=== PATIENT | male | born 2000 | race Caucasian/White ===

== ENCOUNTER 2020-07-29 23:00 | Emergency (ER) | payer BC ==
--- NOTE | 2020-07-29 23:10 | EDM.PDOC ---
ED HPI GENERAL MEDICAL PROBLEM - General Chief Complaint: Laceration Stated Complaint: laceration Time Seen by Provider: 07/29/20 23:10 Source of Information: Reports: Patient - History of Present Illness INITIAL COMMENTS - FREE TEXT/NARRATIVE: Ron Lake, 19-year-old male, presents with a nail laceration of the left third digit. Was putting a wire coupling squeezing power line together when slipped causing a crush type pinch injury to the left third digit. Entrapment briefly with a laceration of the nail occurring. Stated finger came out, but is unsure if he pulled it out or if the device released. Is uncertain of his tetanus status. He has no other injury or complaints. Onset: Today, Sudden Onset Date: 07/29/20 Duration: Minutes: Location: Reports: Upper Extremity, Left Quality: Reports: Dull, Pressure Severity: Moderate Improves with: Reports: None Worsens with: Reports: None Associated Symptoms: Reports: No Other Symptoms - Related Data Allergies Allergy/AdvReac Type Severity Reaction Status Date / Time No Known Allergies Allergy Verified 07/29/20 23:16 Past Medical History - Past Health History Medical/Surgical History: Denies Medical/Surgical History Social & Family History - Family History Family Medical History: Noncontributory ED ROS GENERAL - Review of Systems Review Of Systems: Comprehensive ROS is negative, except as noted in HPI. ED EXAM, SKIN/RASH Exam: See Below Text/Narrative:: Alert, oriented, and minimal if any distress. HEENT negative discharge or deformity PERRLA is free of any icterus no injection. Full range of motion with soft supple neck. No respiratory distress is noted Cardiac is regular radial pulses present correlates. Focused examination to the left upper extremity/hand shows no evidence of any injury to the wrist nor palm. There is a crush appearing injury to the lateral aspect of the distal tip. This caused a laceration 2 mm of the lateral nail. There is no active bleeding with minimal edema. Nail is minimally and appears to be intact to the nail matrix. Capillary refill is intact. There is no deficit noted to motion. Exam Limited By: No Limitations Course - Vital Signs Last Recorded V/S: Last Vital Signs Temp 36.8 C 07/29/20 23:15 Pulse 79 07/29/20 23:15 Resp 18 07/29/20 23:15 BP 129/65 07/29/20 23:15 Pulse Ox 99 10/16/20 23:15 - Orders/Labs/Meds Orders: Active Orders 24 hr Category Date Time Status Vaccines to be Administered [RC] PER UNIT ROUTINE Care 07/29/20 23:15 Ordered Fingers Third Digit Lt F2 [CR] Stat Exams 07/29/20 23:16 Ordered Meds: Medications Discontinued Medications Generic Name Dose Route Start Last Admin Trade Name Freq PRN Reason Stop Dose Admin Diphtheria/Tetanus/Acell Pertussis 0.5 ml 07/29/20 23:15 07/29/20 23:20 Adacel IM 07/29/20 23:16 0.5 ml .ONCE ONE Administration Departure - Departure Time of Disposition: 23:46 Disposition: Home, Self-Care 01 Condition: Good Clinical Impression: Laceration of middle finger with damage to nail, Crush injury to finger, Uchypkiewc-sjajcrzci-vneluhx (DPT) vaccination status unknown, Immunization due - Discharge Information *PRESCRIPTION DRUG MONITORING PROGRAM REVIEWED*: Not Applicable *COPY OF PRESCRIPTION DRUG MONITORING REPORT IN PATIENT SUMI: Not Applicable Instructions: Nail Bed Injury, Jssn-md-Mocs Forms: ED Department Discharge Additional Instructions: ED HPI GENERAL MEDICAL PROBLEM - General Chief Complaint: Laceration Stated Complaint: laceration Time Seen by Provider: 07/29/20 23:10 Source of Information: Reports: Patient - History of Present Illness INITIAL COMMENTS - FREE TEXT/NARRATIVE: Ron Lake, 19-year-old male, presents with a nail laceration of the left third digit. Was putting a wire coupling squeezing power line together when slipped causing a crush type pinch injury to the left third digit. Entrapment briefly with a laceration of the nail occurring. Stated finger came out, but is unsure if he pulled it out or if the device released. Is uncertain of his tetanus status. He has no other injury or complaints. Onset: Today, Sudden - Related Data Allergies Allergy/AdvReac Type Severity Reaction Status Date / Time No Known Allergies Allergy Verified 07/29/20 23:16 Past Medical History - Past Health History Medical/Surgical History: Denies Medical/Surgical History Social & Family History - Family History Family Medical History: Noncontributory ED ROS GENERAL - Review of Systems Review Of Systems: Comprehensive ROS is negative, except as noted in HPI. ED EXAM, SKIN/RASH Exam: See Below Text/Narrative:: Alert, oriented, and minimal if any distress. HEENT negative discharge or deformity PERRLA is free of any icterus no injection. Full range of motion with soft supple neck. No respiratory distress is noted Cardiac is regular radial pulses present correlates. Focused examination to the left upper extremity/hand shows no evidence of any injury to the wrist nor palm. There is a crush appearing injury to the lateral aspect of the distal tip. This caused a laceration 2 mm of the lateral nail. There is no active bleeding with minimal edema. Nail is minimally and appears to be intact to the nail matrix. Capillary refill is intact. There is no deficit noted to motion. Exam Limited By: No Limitations Course - Vital Signs Last Recorded V/S: Last Vital Signs Temp 36.8 C 07/29/20 23:15 Pulse 79 07/29/20 23:15 Resp 18 07/29/20 23:15 BP 129/65 07/29/20 23:15 Pulse Ox 99 07/29/20 23:15 - Orders/Labs/Meds Orders: Active Orders 24 hr Category Date Time Status Vaccines to be Administered [RC] PER UNIT ROUTINE Care 07/29/20 23:15 Ordered Fingers Third Digit Lt F2 [CR] Stat Exams 07/29/20 23:16 Ordered Meds: Medications Discontinued Medications Generic Name Dose Route Start Last Admin Trade Name Freq PRN Reason Stop Dose Admin Diphtheria/Tetanus/Acell Pertussis 0.5 ml 07/29/20 23:15 Adacel IM 07/29/20 23:16 .ONCE ONE Departure - Discharge Information Forms: ED Department Discharge Sepsis Event Note (ED) - Focused Exam Vital Signs: Vital Signs Temp Pulse Resp BP Pulse Ox 07/29/20 23:15 36.8 C 79 18 129/65 99 - Problem List & Annotations (1) Laceration of middle finger with damage to nail SNOMED Code(s): 319311148, 267602874 Code(s): S61.318A - LACERATION W/O FOREIGN BODY OF FINGER W DAMAGE TO NAIL, INIT Status: Acute Qualifiers: Encounter type: initial encounter Laterality: left (2) Crush injury to finger SNOMED Code(s): 28211415 Code(s): S67.10XA - CRUSHING INJURY OF UNSPECIFIED FINGER(S), INITIAL ENCOUNTER Status: Acute Priority: High Qualifiers: Encounter type: initial encounter Qualified Code(s): S67.10XA - Crushing injury of unspecified finger(s), initial encounter (3) Wqnypxxzvh-fwupfjhuk-tuxzuld (DPT) vaccination status unknown SNOMED Code(s): 688737689 Code(s): Z78.9 - OTHER SPECIFIED HEALTH STATUS Status: Acute Priority: High (4) Immunization due SNOMED Code(s): 025621478 Code(s): Z23 - ENCOUNTER FOR IMMUNIZATION Status: Acute Priority: High - Problem List Review Problem List Initiated/Reviewed/Updated: Yes - My Orders Last 24 Hours: My Active Orders 07/29/20 23:15 Vaccines to be Administered [RC] PER UNIT ROUTINE 07/29/20 23:16 Fingers Third Digit Lt F2 [CR] Stat - Assessment/Plan Last 24 Hours: My Active Orders 07/29/20 23:15 Vaccines to be Administered [RC] PER UNIT ROUTINE 07/29/20 23:16 Fingers Third Digit Lt F2 [CR] Stat Plan: Keep this clean and dry as possible. Protect with dressing and change if soiled. Splint may be used for protection while at work. Should be removed and cleansed after working hours and may be left open when at home in clean environment. You may clip the nail keeping it short, as it grows out to avoid pressure and irritation. Follow-up as needed. Keep this clean and dry as possible. Protect with dressing and change if soiled. Splint may be used for protection while at work. Should be removed and cleansed after working hours and may be left open when at home in clean environment. You may clip the nail keeping it short, as it grows out to avoid pressure and irritation. Follow-up as needed. Care Plan Goals: Keep this clean and dry as possible. Protect with dressing and change if soiled. Splint may be used for protection while at work. Should be removed and cleansed after working hours and may be left open when at home in clean environment. You may clip the nail keeping it short, as it grows out to avoid pressure and irritation. Follow-up as needed. Sepsis Event Note (ED) - Focused Exam Vital Signs: Vital Signs Temp Pulse Resp BP Pulse Ox 07/29/20 23:15 36.8 C 79 18 129/65 99 - Problem List & Annotations (1) Laceration of middle finger with damage to nail SNOMED Code(s): 479654458, 925814415 Code(s): S61.318A - LACERATION W/O FOREIGN BODY OF FINGER W DAMAGE TO NAIL, INIT Status: Acute Qualifiers: Encounter type: initial encounter Laterality: left (2) Crush injury to finger SNOMED Code(s): 66218334 Code(s): S67.10XA - CRUSHING INJURY OF UNSPECIFIED FINGER(S), INITIAL ENCOUNTER Status: Acute Priority: High Qualifiers: Encounter type: initial encounter Qualified Code(s): S67.10XA - Crushing injury of unspecified finger(s), initial encounter (3) Beyunwaamd-ocuoyyxdl-cupqjqb (DPT) vaccination status unknown SNOMED Code(s): 135668085 Code(s): Z78.9 - OTHER SPECIFIED HEALTH STATUS Status: Acute Priority: High (4) Immunization due SNOMED Code(s): 157492541 Code(s): Z23 - ENCOUNTER FOR IMMUNIZATION Status: Acute Priority: High - Problem List Review Problem List Initiated/Reviewed/Updated: Yes - My Orders Last 24 Hours: My Active Orders 07/29/20 23:15 Vaccines to be Administered [RC] PER UNIT ROUTINE 07/29/20 23:16 Fingers Third Digit Lt F2 [CR] Stat - Assessment/Plan Last 24 Hours: My Active Orders 07/29/20 23:15 Vaccines to be Administered [RC] PER UNIT ROUTINE 07/29/20 23:16 Fingers Third Digit Lt F2 [CR] Stat Plan: Keep this clean and dry as possible. Protect with dressing and change if soiled. Splint may be used for protection while at work. Should be removed and cleansed after working hours and may be left open when at home in clean environment. You may clip the nail keeping it short, as it grows out to avoid pressure and irritation. Follow-up as needed.
[2020-07-29] MEDS ORDERED: Diphtheria,Pertussis(Acell),Tetanus Vaccine 0.5 ML SDV IM ONE (23:15)
--- NOTE | 2020-07-30 09:50 | CR ---
[id number] RAD/RAD Fingers Left EXAM: 3 VIEWS LEFT FINGERS. INDICATION: CRUSH INJURY WITH NAIL LACERATION COMPARISON: None. DISCUSSION: No fracture, dislocation or other acute osseous abnormality. No radiodense foreign bodies. IMPRESSION: 1. No acute osseous abnormalities. Erich Cain DO 07/30/20 0948 Thank you for allowing us to participate in the care of your patient.
== END 2020-07-29 23:55 | disposition home or self-care (01) ==
LOC: KA.ED 23:00
DX: S67.193A Crushing injury of left middle finger, initial encounter (principal); Z23 Encounter for immunization; W23.0XXA Caught, crushed, jammed, or pinched between moving objects, initial encounter
CPT/HCPCS: 73140-F2; 90471; 90715; 99283; 99283-25